=== PATIENT | male | born 1935 | race Caucasian/White ===

== ENCOUNTER 2023-09-10 06:19 | Emergency (ER) | payer MEDICARE ==
[2023-09-10 07:01] LABS: BASOPHILS PERCENT AUTO 0.2 % (0.0-1.0); HEMATOCRIT 45.3 % (42.0-52.0); HEMOGLOBIN 15.5 gm/dl (14.0-18.0); IMMATURE GRAN ABSOLUTE AUTO 0.04 K/mm3 (0.00-0.05); IMMATURE GRAN PERCENT AUTO 0.3 % (0.0-0.4); LYMPHOCYTES ABSOLUTE AUTO 1.1 K/mm3 (1.0-4.8); LYMPHOCYTES PERCENT AUTO 8.3 % (24.0-44.0); MEAN CORPUSCULAR HEMOGLOBIN 31.6 pg (28.0-32.0); MEAN CORPUSCULAR HGB CONC 34.2 g/dl (32.0-36.0); MEAN CORPUSCULAR VOLUME 92.3 fl (83.0-99.0); MEAN PLATELET VOLUME 10.1 fl (9.4-12.4); MONOCYTES PERCENT AUTO 7.6 % (0.0-8.0); NEUTROPHILS PERCENT AUTO 83.6 % (41.0-71.0); PLATELET COUNT,PLT 137 K/mm3 (150-400); RED BLOOD CELL COUNT 4.91 M/mm3 (4.52-5.90); WHITE BLOOD CELL COUNT,WBC 13.21 K/mm3 (3.9-11.3)
[2023-09-10 07:25] LABS: ALBUMIN 3.7 g/dl (3.4-5.0); ANION GAP 17.3 (5-15); BILIRUBIN TOTAL 1.7 mg/dL (0.2-1.0); BUN/CREATININE RATIO 14.4 (14-18); CALCIUM 9.3 mg/dL (8.5-10.1); CREATININE 1.6 mg/dL (0.7-1.3); EST CRCL DRUG DOSING (CG) 32.06 mL/min; MAGNESIUM 1.5 mg/dL (1.8-2.4); POTASSIUM,K 4.3 mEq/L (3.5-5.1); PROTEIN TOTAL,TP 7.6 g/dl (6.4-8.2)
[2023-09-10 08:00] LABS: CORONAVIRUS COVID-19 NAA POSITIVE (NEGATIVE); INFLUENZA A NAA NEGATIVE (NEGATIVE); RESPIRATORY SYNCYTIAL VIR NAA NEGATIVE (NEGATIVE)
[2023-09-10] MEDS: Heparin Sodium 5,000 Units/ML Vial IVPUSH ONE (08:10)
[2023-09-10] MEDS: Heparin Sodium/D5W 25,000 UNITS/500 ML BAG IV SCH (08:11)
[2023-09-10] MEDS: Aspirin 81 MG Tab.EC PO ONE (08:11)
[2023-09-10] MEDS: Clopidogrel 75 MG Tab PO ONE (08:15)
[2023-09-10] MEDS: Aspirin 81 MG Tab.Chew PO ONE (08:15)
[2023-09-10] MEDS: Sodium Chloride 0.9% 10 ML Syringe FLUSH PRN (08:15)
== END 2023-09-10 09:20 ==
LOC: JD.ED 06:19
DX: I21.4 Non-ST elevation (NSTEMI) myocardial infarction (principal); R06.02 Shortness of breath; Z88.8 Allergy status to other drugs, medicaments and biological substances; Z79.899 Other long term (current) drug therapy
CPT/HCPCS: 0241U; 36415; 71045; 71250; 80053; 83735; 84484; 85025; 85730; 93005; 96365; 99285; A9270; J1644; J3490; 93010